=== PATIENT | female | born 1980 | race Caucasian/White ===

== ENCOUNTER 2020-12-18 10:51 | Emergency (ER) | payer OTHER ==
[~2020-12-18 10:51] MED LIST: ATENOLOL25 MG PO; KLONOPIN1 MG PO; PERCOCET 5-3251 EACH PO
[2020-12-18 11:29] LABS: BASOPHIL 0.9 % (0-2); EOSINOPHIL 2.9 % (0-5); HCT 42.5 % (37.0-47.0); HGB 14.2 g/dl (12.5-16.0); MCH 30.9 pg (25.0-31.0); MCHC 33.4 g/dL (32.0-36.0); MCV 92.4 fL (78.0-100.0); MONOCYTE 7.7 % (0-12); MPV 10.8 fL (6.0-9.5); NEUTROPHIL 59.1 % (41-80); NRBC 0; PLT 262 K/uL (150-400); RDW 12.4 % (11.5-14.0)
[2020-12-18 11:50] LABS: ALBUMIN 4.2 g/dL (3.4-5.0); BILIRUBIN - TOTAL 0.6 mg/dL (0.2-1.0); BUN/CREAT RATIO (CALC) 23.1 RATIO; CREATININE 0.65 mg/dL (0.51-0.95); GLOBULIN (CALCULATION) 3.8 g/dL; MAGNESIUM 2.1 mg/dL (1.8-2.4)
[2020-12-18 12:27] LABS: BILIRUBIN NEGATIVE (NEGATIVE); BLOOD NEGATIVE Ery/uL (NEGATIVE); CLARITY CLEAR (CLEAR); COLOR YELLOW (YELLOW); GLUCOSE (U) NORMAL (NORMAL); LEUKOCYTES NEGATIVE Leu/uL (NEGATIVE); NITRITE NEGATIVE (NEGATIVE); PROTEIN NEGATIVE (NEGATIVE); SPECIFIC GRAVITY >=1.030 (1.001-1.030); UROBILINOGEN 0.2 mg/dL (0.2-1.0)
== END 2020-12-18 13:34 | disposition home or self-care (01) ==
LOC: FER 10:51
PROVIDERS: Emergency Medicine
DX: F41.9 Anxiety disorder, unspecified (principal); R07.89 Other chest pain; I10 Essential (primary) hypertension; Z79.899 Other long term (current) drug therapy; Z88.0 Allergy status to penicillin; Z87.891 Personal history of nicotine dependence
CPT/HCPCS: 36415; 71045; 80053; 81003; 83690; 83735; 84484; 85025; 85379; 93005